=== PATIENT | female | born 1945 | race Caucasian/White ===

== ENCOUNTER 2017-04-10 20:35 | Emergency (ER) | payer BC ==
[~2017-04-10] VITALS: Ht 165.1 cm; Wt 76.4 kg
[~2017-04-10 20:35] MED LIST: ASCORBIC ACID100 MG PO; AUGMENTIN875 MG PO; AZELASTINE137 MCG/0. BOTH NARES; BENICAR20 MG PO; FISH OIL 1,0001 EAC7 PO; HYDROCHLOROTHIA25 MG PO; IBUPROFEN800 MG PO; KLOR-CON 88 MEQ PO; LEVAQUIN500 MG PO; LEVOFLOXACIN500 MG PO; LORAZEPAM0.5 MG PO; OMEPRAZOLE20 MG PO; PREDNISONE10 MG PO; PREDNISONE50 MG PO; ROBITUSSIN AC,T10 ML PO; SPIRIVA1 INHALATI IH; SYMBICORT60 INHALAT IH; VENTOLIN HFA18 GM IH; VITAMIN B-1250 MC3 PO; VITAMIN B-650 MG PO; VITAMIN D31000 UNIT PO; VITAMIN E400 UNIT PO
[2017-04-10 21:19] LABS: HEMATOCRIT 34.3 % (36.0-46.0); MCH 30.4 PG (29.0-34.0); MCHC 34.4 G/DL (30.0-36.0); MCV 88.4 FL (83-99); MEAN PLAT.VOLUME 8.8 uM^3 (9.5-12.4); PLATELET COUNT 216 K/uL (156-360); RBC DIS.WIDTH-SD 41.3 % (39-53); RED BLOOD COUNT 3.88 M/uL (3.80-5.20); WHITE BLOOD COUNT 8.5 K/uL (4.1-10.2)
[2017-04-10 21:28] LABS: CHLORIDE 100 mEq/L (99-109); POTASSIUM 3.2 mEq/L (3.7-5.4); SODIUM 137 mEq/L (136-147)
[2017-04-10 21:29] LABS: GLUCOSE 117 mg/dL (70-99)
[2017-04-10 21:31] LABS: ANION GAP 10 MEQ/L (2-14)
[2017-04-10 21:33] LABS: GFR ESTIMATE (CALCULATED) 47 mL/min/
[2017-04-10 21:34] LABS: UREA NITROGEN (BUN) 14 mg/dL (9-23)
[2017-04-10 21:42] LABS: TROP-I INTERPRETATION NEGATIVE; TROPONIN-I < 0.01 ng/mL (0.0-0.30)
[2017-04-10 22:10] LABS: INFLUENZA A VIRAL ANTIGEN NEGATIVE; INFLUENZA B VIRAL ANTIGEN NEGATIVE
[2017-04-10] MEDS ORDERED: LEVAQUIN500 MG PO (22:57)
[2017-04-10] MEDS ORDERED: PREDNISONE20 MG PO (22:57)
[2017-04-10] MEDS ORDERED: HYCODAN SYRUP480 ML PO (22:57)
[2017-04-10 23:25] VITALS: BP 138/56
== END 2017-04-10 23:38 | disposition home or self-care (01) ==
LOC: EME 20:35
PROVIDERS: Emergency Medicine
DX: J20.9 Acute bronchitis, unspecified (principal); B34.9 Viral infection, unspecified; J44.1 Chronic obstructive pulmonary disease with (acute) exacerbation; I10 Essential (primary) hypertension; J02.9 Acute pharyngitis, unspecified; Z87.891 Personal history of nicotine dependence
CPT/HCPCS: 71020; 80048; 83605; 84484; 85027; 87040; 87502; 94640; 99281; 99285; J7512